=== PATIENT | female | born 1995 | race Caucasian/White ===

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

== ENCOUNTER 2017-01-16 05:55 | Emergency (ER) | payer MEDICAID ==
[2017-01-16 08:33] LABS: APPEARANCE CLEAR (CLEAR); BACTERIA FEW /hpf (NONE SEEN); BILIRUBIN NEGATIVE (NEGATIVE); COLOR YELLOW (YELLOW); EPITHELIAL CELLS OCC /hpf (0-5); GLUCOSE NEGATIVE (NEGATIVE); KETONE NEGATIVE (NEGATIVE); MUCUS <1+ /lpf (NONE SEEN); NITRITE NEGATIVE (NEGATIVE); PROTEIN NEGATIVE (NEGATIVE); RED CELLS - URINE OCC /hpf (0-5); UROBILINOGEN NORMAL (NORMAL); WHITE CELLS - URINE 0-5 /hpf (0-5)
== END 2017-01-16 09:08 | disposition home or self-care (01) ==
LOC: D.ER 05:55
PROVIDERS: Family Medicine
DX: B34.9 Viral infection, unspecified (principal)

== ENCOUNTER 2017-11-06 16:16 | Emergency (ER) | payer MEDICAID ==
[~2017-11-06] VITALS: Ht 172.7 cm; Wt 65.9 kg
[2017-11-06 16:46] VITALS: Ht 172.7 cm; Wt 65.9 kg
[2017-11-06] MEDS ORDERED: ASPIRIN EC325 M1 PO (16:48)
[2017-11-06] MEDS ORDERED: VISTARIL50 MG PO (16:49)
[2017-11-06] MEDS ORDERED: SYNTHROID150 MCG PO (16:50)
[2017-11-06] MEDS ORDERED: CLEOCIN HCL300 MG PO (16:50)
[2017-11-06] MEDS ORDERED: TESTOSTERON200 MG/ML IM (16:51)
[2017-11-06 20:29] LABS: BASOPHILS 0.3 % (0-2); EOSINOPHILS 1.5 % (0-7); HEMOGLOBIN 16.6 g/dL (12-16); IMMATURE GRANULOCYTES 0.1 % (0-5); LYMPHOCYTES 34.6 % (15-50); MCH 30.1 pg (26.0-34.0); MCHC 34.6 g/dL (31.0-37.0); MEAN PLATELET VOLUME 9.6 fL (7.4-10.4); MONOCYTES 6.5 % (2-11); PLATELET COUNT 181 10x3/uL (130-400); RBC 5.52 10x6/uL (4.00-5.40); RDW 14.9 % (11.5-14.5); WBC 7.2 10x3/uL (4.8-10.8)
[2017-11-06 20:42] LABS: ALBUMIN 3.9 g/dL (3.4-5.0); ALKALINE PHOSPHATASE 68 U/L (46-116); ALT (SGPT) 15 U/L (10-68); BILIRUBIN - TOTAL 0.42 mg/dL (0.2-1.3); CALC OSMOLALITY 281 mosm/kg (275-300); CARBON DIOXIDE 31.1 mmol/L (21.0-32.0); CHLORIDE - SERUM 106 mmol/L (98-107); CREATININE - SERUM 0.9 mg/dL (0.6-1.3); GLUCOSE 106 mg/dL (74-106); POTASSIUM - SERUM 4.2 mmol/L (3.5-5.1); PROTEIN - SERUM 7.3 g/dL (6.4-8.2); SODIUM 142 mmol/L (136-145); UREA NITROGEN 10 mg/dL (7-18); eGFR NON AFRICAN AMERICAN 85 mL/min (90-120)
[2017-11-06 20:44] LABS: PROTIME 12.8 SECONDS (11.6-15.0)
[2017-11-06 20:46] LABS: D-DIMER-QUANTITATIVE < 0.27 ug/mLFEU (0.20-0.54)
[2017-11-06 21:45] VITALS: BP 132/85
== END 2017-11-06 21:45 | disposition home or self-care (01) ==
LOC: D.ER 16:16
PROVIDERS: Family Medicine
DX: M79.605 Pain in left leg (principal); M79.604 Pain in right leg; D75.1 Secondary polycythemia; E07.9 Disorder of thyroid, unspecified

== ENCOUNTER 2018-01-05 14:18 | Emergency (ER) | payer MEDICAID ==
[~2018-01-05] VITALS: Ht 172.7 cm; Wt 63.6 kg
[~2018-01-05 14:18] MED LIST: ASPIRIN EC325 M1 PO; CLEOCIN HCL300 MG PO; SYNTHROID150 MCG PO; TESTOSTERON200 MG/ML IM; VISTARIL50 MG PO
[2018-01-05 14:26] VITALS: Ht 172.7 cm; Wt 63.6 kg
[2018-01-05] MEDS ORDERED: VIBRAMYCIN 100100 MG PO (16:13)
[2018-01-05] MEDS ORDERED: PHENERGAN DM SYR5 ML PO (16:13)
[2018-01-05 16:30] VITALS: BP 117/57
== END 2018-01-05 16:30 | disposition home or self-care (01) ==
LOC: D.ER 14:18
DX: J06.9 Acute upper respiratory infection, unspecified (principal); J40 Bronchitis, not specified as acute or chronic

== ENCOUNTER 2019-11-01 04:15 | Emergency (ER) | payer MEDICAID, OTHER ==
[~2019-11-01] VITALS: Ht 172.7 cm; Wt 61.8 kg
[~2019-11-01 04:15] MED LIST changes: +PHENERGAN DM SYR5 ML PO; +VIBRAMYCIN 100100 MG PO
[2019-11-01 04:26] VITALS: Ht 172.7 cm; Wt 61.8 kg
[2019-11-01 06:30] LABS: BASOPHILS 0.3 % (0-2); HEMATOCRIT 45.7 % (42.0-54.0); HEMOGLOBIN 15.1 g/dL (13.5-17.5); IMMATURE GRANULOCYTES 0.3 % (0-5); LYMPHOCYTES 29.3 % (15-50); MCH 29.4 pg (26.0-34.0); MCV 88.9 fL (80.0-100.0); MEAN PLATELET VOLUME 9.9 fL (7.4-10.4); MONOCYTES 5.8 % (2-11); NEUTROPHILS 63.3 % (40-80); PLATELET COUNT 216 10x3/uL (130-400); RBC 5.14 10x6/uL (4.20-6.10); WBC 5.8 10x3/uL (4.8-10.8)
[2019-11-01 06:38] LABS: CALC OSMOLALITY 284 mosm/kg (275-300); CALCIUM 9.8 mg/dL (8.5-10.1); CARBON DIOXIDE 29.1 mmol/L (21.0-32.0); CHLORIDE - SERUM 107 mmol/L (98-107); GLUCOSE 96 mg/dL (74-106); POTASSIUM - SERUM 4.1 mmol/L (3.5-5.1); SODIUM 143 mmol/L (136-145); UREA NITROGEN 12 mg/dL (7-18); eGFR NON AFRICAN AMERICAN > 90 mL/min (90-120)
[2019-11-01 06:44] LABS: ALBUMIN 4.2 g/dL (3.4-5.0); ALKALINE PHOSPHATASE 97 U/L (30-120); ALT (SGPT) 44 U/L (10-68); BILIRUBIN - TOTAL 0.29 mg/dL (0.2-1.3); PROTEIN - SERUM 7.9 g/dL (6.4-8.2)
[2019-11-01 10:15] VITALS: BP 122/66
== END 2019-11-01 10:45 | disposition other institution (70) ==
LOC: D.ER 04:15
PROVIDERS: Family Medicine
DX: R33.9 Retention of urine, unspecified (principal); Z87.890 Personal history of sex reassignment

== ENCOUNTER 2019-11-12 22:55 | Emergency (ER) | payer MEDICAID, OTHER ==
[~2019-11-12] VITALS: Ht 172.7 cm; Wt 63.6 kg
[2019-11-12 23:07] VITALS: Ht 172.7 cm; Wt 63.6 kg
[2019-11-12 23:58] LABS: BACTERIA MODERATE /hpf (NEGATIVE); BILIRUBIN NEGATIVE (NEGATIVE); EPITHELIAL CELLS 0-5 /hpf (0-5); GLUCOSE NEGATIVE (NEGATIVE); KETONE NEGATIVE (NEGATIVE); NITRITE POSITIVE (NEGATIVE); UROBILINOGEN NORMAL (NORMAL); WHITE CELLS - URINE >50 /hpf (NEGATIVE)
[2019-11-13] MEDS ORDERED: OMNICEF300 MG PO (00:30)
--- NOTE | 2019-11-13 02:13 | NUR ---
DR. GRANADO NOTIFIED AND REVIEWED PT'S BEHAVIOR AND ASSESSMENT RESULTS. PT IS A LOW RISK PER DR. GRANADO. DR. GRANADO STATED TO GIVE RESOURCES TO PT AT TIME OF DISCHARGE. NO FURTHER ORDERS AT THIS TIME. RESOURCES REVIEWED WITH PT AND HE VERBALIZED UNDERSTANDING.
[2019-11-13 02:18] VITALS: BP 118/76
== END 2019-11-13 02:18 | disposition other institution (70) ==
LOC: D.ER 22:55
PROVIDERS: Family Medicine
DX: N39.0 Urinary tract infection, site not specified (principal); T83.9XXA Unspecified complication of genitourinary prosthetic device, implant and graft, initial encounter